=== PATIENT | female | born 1970 ===

== ENCOUNTER 2017-03-11 09:15 | Emergency (ER) | payer MEDICAID ==
[2017-03-11 09:34] VITALS: BP 134/75; TEMP 98.4; O2SAT 98
[2017-03-11] MEDS ORDERED: Fluorescein 1 mg Ophthalmic Strip ONE (10:06)
[2017-03-11] MEDS ORDERED: Tetracaine 0.5% Ophth (OR ONLY) ONE (10:06)
--- NOTE | 2017-03-11 10:24 | C.PDOC ---
History Of Present Illness A 49 year old female presents to the emergency room with complaints of left eye irritation for the past 4 days. Patient describes the irritation as a foreign body sensation. Patient notes some slight redness. Patient denies any itching, discharge, sore throat, vision changes, or any other complaints. Time Seen by Provider: 03/11/17 09:47 Chief Complaint (Nursing): Eye Problem History Per: Patient History/Exam Limitations: no limitations Onset/Duration Of Symptoms: Days (4) Current Symptoms Are (Timing): Still Present Injury To Eye?: No Severity: Mild Associated Symptoms: FB Sensation. denies: Pain, Decreased Vision, Swelling, Itching, Discharge From Eye Recent travel outside of the [place]: No Past Medical History Reviewed: Historical Data, Nursing Documentation, Vital Signs Vital Signs: Last Vital Signs Temp 98.4 F 03/11/17 09:33 Pulse 71 03/11/17 10:50 Resp 18 03/11/17 10:50 BP 134/75 03/11/17 09:33 Pulse Ox 98 03/11/17 10:50 Family History: States: No Known Family Hx - Social History Hx Alcohol Use: No Hx Substance Use: No Review Of Systems Constitutional: Negative for: Fever, Chills Eyes: Positive for: Redness, Other (Left eye irritation - foreign body sensation. Slight redness. No discharge.). Negative for: Pain, Vision Change, Conjunctivae Inflammation, Eyelid Inflammation ENT: Negative for: Throat Pain, Throat Swelling Neurological: Negative for: Headache, Dizziness Physical Exam - Physical Exam Appears: Well, Non-toxic, No Acute Distress Skin: Normal Color, Warm, Dry, No Rash Head: Atraumatic, Normacephalic Eye(s): bilateral: PERRL, EOMI, left: Other (Slight conjuntiva redness. No discharge.) Neurological/Psych: Oriented x3, Normal Speech ED Course And Treatment O2 Sat by Pulse Oximetry: 98 Progress Note: Fluorescein and tetracaine were instilled. No foreign bodies or abrasions noted. Medical Decision Making Medical Decision Making: Patient given rx eye drops and instructed to follow up with opthalmologist within 1-2 days. Disposition Counseled Patient/Family Regarding: Diagnosis, Need For Followup - Disposition Referrals: Jakob Luque MD [Staff Provider] - Disposition: HOME/ ROUTINE Disposition Time: 10:15 Condition: GOOD Prescriptions: Ketorolac Tromethamine [Acular 0.5%] 2 drop TOP TID #1 bottle Instructions: Eye Pain (ED) - Clinical Impression Clinical Impression: Irritation of left eye - Scribe Statement The provider has reviewed the documentation as recorded by the Scribe Glenn Lindquist All medical record entries made by the Scribe were at my direction and personally dictated by me. I have reviewed the chart and agree that the record accurately reflects my personal performance of the history, physical exam, medical decision making, and the department course for this patient. I have also personally directed, reviewed, and agree with the discharge instructions and disposition.
[2017-03-11 10:50] VITALS: PULSE 71; RESP 18
== END 2017-03-11 10:51 | disposition home or self-care (01) ==
LOC: EDBD 09:15 → C.ER 09:15
DX: H57.8 Other specified disorders of eye and adnexa (principal)

== ENCOUNTER 2017-04-29 09:10 | Emergency (ER) | payer MEDICAID ==
--- NOTE | 2017-04-29 11:57 | RAD ---
HISTORY: r/o infiltrate COMPARISON: No prior. TECHNIQUE: Chest PA and lateral FINDINGS: LUNGS: No active pulmonary disease. PLEURA: No significant pleural effusion identified. No pneumothorax apparent. CARDIOVASCULAR: Normal. OSSEOUS STRUCTURES: Degenerative changes in the spine. VISUALIZED UPPER ABDOMEN: Normal. OTHER FINDINGS: None. IMPRESSION: No active disease.
[2017-04-29 12:27] VITALS: BP 122/67; PULSE 88; RESP 15; TEMP 98.2; O2SAT 99
--- NOTE | 2017-04-29 12:49 | C.PDOC ---
Time Seen by Provider: 04/29/17 09:54 Chief Complaint (Nursing): ENT Problem History Per: Patient History/Exam Limitations: None Onset/Duration Of Symptoms: Days (2) Current Symptoms Are (Timing): Still Present Past Medical History Vital Signs: Last Vital Signs Temp 98.2 F 04/29/17 12:26 Pulse 88 04/29/17 12:26 Resp 15 04/29/17 12:26 BP 122/67 04/29/17 12:26 Pulse Ox 99 04/29/17 12:49 - Social History Hx Alcohol Use: No Hx Substance Use: No ED Course And Treatment O2 Sat by Pulse Oximetry: 99 Disposition - Disposition Referrals: [facility] [Outside] [facility] [Outside] Disposition: HOME/ ROUTINE Condition: GOOD Additional Instructions: Thank you for letting us take care of you today. Your provider was Dr. Pulido. You were treated for an acute cough. The emergency medical care you received today was directed at your acute symptoms. If you were prescribed any medication, please fill it and take as directed. It may take several days for your symptoms to resolve. Return to the Emergency Department if your symptoms worsen, do not improve, or if you have any other problems. Please contact your doctor or call one of the physicians/clinics you have been referred to that are listed on the Patient Visit Information form that is included in your discharge packet. Bring any paperwork you were given at discharge with you along with any medications you are taking to your follow up visit. Our treatment cannot replace ongoing medical care by a primary care provider (PCP) outside of the emergency department. Thank you for allowing the [facility] team to be part of your care today. Follow up with the clinic in 3-4 days for re-evaluation. Instructions: Acute Cough (ED) Print Language: FAROESE - Scribe Statement The provider has reviewed the documentation as recorded by the Scribe Erica Basilio Provider Attestation: All medical record entries made by the Ronni were at my direction and personally dictated by me. I have reviewed the chart and agree that the record accurately reflects my personal performance of the history, physical exam, medical decision making, and the department course for this patient. I have also personally directed, reviewed, and agree with the discharge instructions and disposition.
--- NOTE | 2017-04-29 12:54 | C.PDOC ---
History Of Present Illness 47 year old patient presents to the ED complaining of right ear pain and cough for the past 2 days. She notes she has a productive cough with yellow phlegm. Patient also complains of a subjective fever. She denies any sick contacts, nausea, vomiting, or change in hearing. Time Seen by Provider: 04/29/17 09:54 Chief Complaint (Nursing): ENT Problem History Per: Patient History/Exam Limitations: None Onset/Duration Of Symptoms: Days (2) Current Symptoms Are (Timing): Still Present Quality (Ear): Pain W/Touch Symptoms Have Been: Continuous Severity: Mild Pain Scale Rating Of: 3 Past Medical History Reviewed: Historical Data, Nursing Documentation, Vital Signs Vital Signs: Last Vital Signs Temp 98.2 F 04/29/17 12:26 Pulse 88 04/29/17 12:26 Resp 15 04/29/17 12:26 BP 122/67 04/29/17 12:26 Pulse Ox 99 04/29/17 12:57 Family History: States: Unknown Family Hx - Social History Hx Alcohol Use: No Hx Substance Use: No Review Of Systems Except As Marked, All Systems Reviewed And Found Negative. Constitutional: Positive for: Fever (subjective) ENT: Positive for: Ear Pain (right) Respiratory: Positive for: Cough Gastrointestinal: Negative for: Nausea, Vomiting Physical Exam - Physical Exam Appears: Non-toxic, No Acute Distress Skin: Warm, Dry Head: Atraumatic, Normacephalic Eye(s): bilateral: Normal Inspection, PERRL, EOMI Ear(s): Bilateral: Normal Nose: Normal Oral Mucosa: Moist Throat: Normal, No Erythema, No Exudate Neck: Normal ROM, Supple Chest: Symmetrical Cardiovascular: Rhythm Regular Respiratory: Normal Breath Sounds, No Accessory Muscle Use, No Rales, No Rhonchi , No Wheezing Gastrointestinal/Abdominal: Soft, No Tenderness Back: Normal Inspection, No CVA Tenderness Extremity: Bilateral: Atraumatic Neurological/Psych: Oriented x3, Normal Speech, Normal Cognition Gait: Steady ED Course And Treatment O2 Sat by Pulse Oximetry: 99 (room air) Pulse Ox Interpretation: Normal - Other Rad Chest x-ray X-Ray: Read By Radiologist (Mekhi Girard MD) Interpretation: HISTORY: r/o infiltrate. COMPARISON: No prior. TECHNIQUE: Chest PA and lateral. FINDINGS: LUNGS: No active pulmonary disease. PLEURA: No significant pleural effusion identified. No pneumothorax apparent. CARDIOVASCULAR: Normal. OSSEOUS STRUCTURES: Degenerative changes in the spine. VISUALIZED UPPER ABDOMEN: Normal. OTHER FINDINGS: None. IMPRESSION: No active disease. Progress Note: Plan: Chest x-ray Disposition - Disposition Referrals: [facility] [Outside] [facility] [Outside] Disposition: HOME/ ROUTINE Disposition Time: 12:00 Condition: GOOD Additional Instructions: Thank you for letting us take care of you today. Your provider was Dr. Pulido. You were treated for an acute cough. The emergency medical care you received today was directed at your acute symptoms. If you were prescribed any medication, please fill it and take as directed. It may take several days for your symptoms to resolve. Return to the Emergency Department if your symptoms worsen, do not improve, or if you have any other problems. Please contact your doctor or call one of the physicians/clinics you have been referred to that are listed on the Patient Visit Information form that is included in your discharge packet. Bring any paperwork you were given at discharge with you along with any medications you are taking to your follow up visit. Our treatment cannot replace ongoing medical care by a primary care provider (PCP) outside of the emergency department. Thank you for allowing the [facility] team to be part of your care today. Follow up with the clinic in 3-4 days for re-evaluation. Instructions: Acute Cough (ED) Print Language: WOLOF - Clinical Impression Clinical Impression: Cough - Scribe Statement The provider has reviewed the documentation as recorded by the Titusibloan Basilio Provider Attestation: All medical record entries made by the Titusibloan were at my direction and personally dictated by me. I have reviewed the chart and agree that the record accurately reflects my personal performance of the history, physical exam, medical decision making, and the department course for this patient. I have also personally directed, reviewed, and agree with the discharge instructions and disposition.
== END 2017-04-29 12:26 | disposition home or self-care (01) ==
LOC: C.ER 09:10
DX: R05 Cough (principal)

== ENCOUNTER 2017-10-29 15:31 | Emergency (ER) | payer MEDICAID ==
[2017-10-29 15:32] VITALS: BMI 32.3
[2017-10-29 16:03] VITALS: TEMP 98.2
--- NOTE | 2017-10-29 16:46 | C.PDOC ---
History Of Present Illness 47 year old female presents to the ED for evaluation of a productive cough which began 5 days ago. Patient denies fever, chills, and ear pain at this time. Time Seen by Provider: 10/29/17 16:10 Chief Complaint (Nursing): Cough, Cold, Congestion History Per: Patient History/Exam Limitations: no limitations Onset/Duration Of Symptoms: Days (5) Current Symptoms Are (Timing): Still Present Associated Symptoms: Cough. denies: Fever, Chills Ear Symptoms: Bilateral: None Additional History Per: Patient Past Medical History Reviewed: Historical Data, Nursing Documentation, Vital Signs Vital Signs: Last Vital Signs Temp 98.2 F 10/29/17 15:59 Pulse 70 10/29/17 17:12 Resp 16 10/29/17 17:12 BP 129/84 10/29/17 17:12 Pulse Ox 100 10/29/17 20:48 - Medical History PMH: No Chronic Diseases Surgical History: No Surg Hx Family History: States: Unknown Family Hx - Social History Hx Alcohol Use: No Hx Substance Use: No - Immunization History Hx Tetanus Toxoid Vaccination: No Hx Influenza Vaccination: No Hx Pneumococcal Vaccination: No Review Of Systems Constitutional: Negative for: Fever, Chills ENT: Negative for: Ear Pain Respiratory: Positive for: Cough, Sputum Physical Exam - Physical Exam Appears: Non-toxic, No Acute Distress Skin: Normal Color, Warm, Dry Head: Atraumatic, Normacephalic Eye(s): bilateral: Normal Inspection Ear(s): Bilateral: Normal Nose: Normal, No Discharge Oral Mucosa: Moist Throat: Normal, No Erythema, No Exudate Neck: Supple Chest: Symmetrical, No Deformity, No Tenderness Cardiovascular: Rhythm Regular, No Murmur Respiratory: Normal Breath Sounds, No Rales, No Rhonchi, No Wheezing Neurological/Psych: Oriented x3, Normal Speech, Normal Cognition ED Course And Treatment O2 Sat by Pulse Oximetry: 100 (on RA) Pulse Ox Interpretation: Normal Progress Note: CXR ordered and reviewed. Results are negative. Zithromax PO administered. On reassessment, patient is resting comfortably, showing no signs of distress, remains afebrile and is stable for discharge. Patient is advised to f/u with her PMD within 1-2 days for further evaluation. Disposition - Disposition Disposition: HOME/ ROUTINE Disposition Time: 16:44 Condition: STABLE Additional Instructions: Follow up with PMD/Clinic within 1-2 days. Return to Ed if feel worse. Prescriptions: Ibuprofen [Motrin Tab] 600 mg PO Q8 #30 tab Promethazine HCl/Codeine [Prometh-Codein 6.25-10 mg/5 ml] 5 ml PO .Q4-6H #150 ml Azithromycin [Zithromax] 250 mg PO DAILY #4 tab Instructions: Acute Bronchitis (ED) Forms: [employer] (Greenlandic), Work Excuse Print Language: BELARUSIAN - Clinical Impression Clinical Impression: Bronchitis - PA / [employer] / Resident Statement MD/DO has reviewed & agrees with the documentation as recorded. - Scribe Statement The provider has reviewed the documentation as recorded by the Scribe (Alyssia Basilio) All medical record entries made by the Scribe were at my direction and personally dictated by me. I have reviewed the chart and agree that the record accurately reflects my personal performance of the history, physical exam, medical decision making, and the department course for this patient. I have also personally directed, reviewed, and agree with the discharge instructions and disposition.
[2017-10-29 17:14] VITALS: BP 129/84; PULSE 70; RESP 16
--- NOTE | 2017-10-29 18:03 | RAD ---
HISTORY: cough COMPARISON: Chest x-ray performed 04/29/17 TECHNIQUE: Chest PA and lateral FINDINGS: LUNGS: No focal consolidation. Tiny scattered probable vessels on end versus calcified granulomas. Please note that chest x-ray has limited sensitivity for the detection of pulmonary masses. PLEURA: No significant pleural effusion identified. No definite pneumothorax . CARDIOVASCULAR: Heart size appears within normal limits. OSSEOUS STRUCTURES: Degenerative changes. VISUALIZED UPPER ABDOMEN: Unremarkable. OTHER FINDINGS: None. IMPRESSION: No acute findings identified. Additional incidental findings as above.
[2017-10-29 20:49] VITALS: O2SAT 100
== END 2017-10-29 17:12 | disposition home or self-care (01) ==
LOC: C.ER 15:31
DX: J40 Bronchitis, not specified as acute or chronic (principal)

== ENCOUNTER 2017-11-01 09:12 | Emergency (ER) | payer MEDICAID ==
[2017-11-01 09:12] VITALS: BMI 32.3
[2017-11-01 09:20] VITALS: BP 137/83; PULSE 90; TEMP 98.1; O2SAT 99
--- NOTE | 2017-11-01 10:00 | C.PDOC ---
History Of Present Illness Kimmie Pierre is a 47 year old female, with no past medical history, who presents to the emergency department complaining of cough and gum pain onset for x1 week. Patient reports developing a fever and cough x1 week ago, and states she began developing an abscess on left side of her gums around the same time. She was seen in the ER on 10/29/17 and prescribed motrin, promethazine and zithromax with no relief of cough. She states promethazine made her vomit. Cough is worst at night when sleeping. She denies any current fevers. No further complains. PMD: None provided. Time Seen by Provider: 11/01/17 09:32 Chief Complaint (Nursing): ENT Problem History Per: Patient History/Exam Limitations: no limitations, language barrier (translated by dawson ) Onset/Duration Of Symptoms: Days (x1 week) Current Symptoms Are (Timing): Still Present Severity: Mild Pain Scale Rating Of: 0 Past Medical History Reviewed: Historical Data, Nursing Documentation, Vital Signs Vital Signs: Last Vital Signs Temp 98.1 F 11/01/17 09:18 Pulse 90 11/01/17 09:18 Resp 17 11/01/17 10:18 BP 137/83 11/01/17 09:18 Pulse Ox 99 11/01/17 10:20 - Medical History PMH: No Chronic Diseases Surgical History: No Surg Hx Family History: States: Unknown Family Hx - Social History Hx Tobacco Use: No Hx Alcohol Use: No Hx Substance Use: No - Immunization History Hx Tetanus Toxoid Vaccination: No Hx Influenza Vaccination: No Hx Pneumococcal Vaccination: No Review Of Systems Except As Marked, All Systems Reviewed And Found Negative. Constitutional: Negative for: Fever ENT: Positive for: Mouth Pain (gum pain) Respiratory: Positive for: Cough Physical Exam - Physical Exam Appears: Well, Non-toxic, No Acute Distress Skin: Normal Color, Warm, Dry Head: Atraumatic, Normacephalic Eye(s): bilateral: Normal Inspection, EOMI Ear(s): Bilateral: Normal Nose: Normal Gingiva: Erythema (proximal to tooth #19th-20th ), Swelling, No Abscess ( definitive) Throat: Normal Neck: Normal ROM, Supple Cardiovascular: Rhythm Regular Respiratory: Normal Breath Sounds, No Accessory Muscle Use Extremity: Normal ROM, No Deformity, No Swelling Neurological/Psych: Oriented x3 (alert), Normal Speech ED Course And Treatment O2 Sat by Pulse Oximetry: 99 (RA) Pulse Ox Interpretation: Normal Medical Decision Making Medical Decision Making: Initial Impression: dental infection Initial Plan: --Zithromax 500 mg PO --reevaluation 10:00 Upon provider reevaluation patient is feeling better, is medically stable, and requires no further treatment in the ED at this time. Patient will be discharged home with Rx for amoxicillin. Counseling was provided and all questions were answered regarding diagnosis and need for follow up with dentist. There is agreement to discharge plan. Return if symptoms persist or worsen. Disposition Counseled Patient/Family Regarding: Diagnosis, Need For Followup, Rx Given - Disposition Referrals: [facility] [Outside] Disposition: HOME/ ROUTINE Disposition Time: 10:00 Condition: STABLE Additional Instructions: follow up with dental associates at [facility] [phone] call to make an appointment take medications as prescribed return to hospital if symptoms worsens or progress take over the counter cough medication for cough follow up with your doctor in 2 days Prescriptions: Amoxicillin 875 mg PO BID #20 tablet Instructions: Gingivostomatitis (ED) Forms: [employer] (Puerto Rican) Print Language: FILIPINO - Clinical Impression Clinical Impression: Cough, Gum symptoms - Scribe Statement Alexandr Ramsey Provider Attestation: All medical record entries made by the Scribe were at my direction and personally dictated by me. I have reviewed the chart and agree that the record accurately reflects my personal performance of the history, physical exam, medical decision making, and the department course for this patient. I have also personally directed, reviewed, and agree with the discharge instructions and disposition.
--- NOTE | 2017-11-01 10:03 | C.PDOC ---
History Of Present Illness Kimmie Pierre is a 47 year old female, with no past medical history, who presents to the emergency department complaining of cough and gum pain onset for x1 week. Patient reports developing a fever and cough x1 week ago, for which she was seen in the ER and prescribed Time Seen by Provider: 11/01/17 09:32 Chief Complaint (Nursing): ENT Problem Past Medical History Vital Signs: Last Vital Signs Temp 98.1 F 11/01/17 09:18 Pulse 90 11/01/17 09:18 Resp 18 11/01/17 09:18 BP 137/83 11/01/17 09:18 Pulse Ox 99 11/01/17 10:00 Family History: States: Unknown Family Hx - Social History Hx Alcohol Use: No Hx Substance Use: No - Immunization History Hx Tetanus Toxoid Vaccination: No Hx Influenza Vaccination: No Hx Pneumococcal Vaccination: No ED Course And Treatment O2 Sat by Pulse Oximetry: 99 Disposition - Disposition Referrals: [facility] [Outside] Forms: [facility] (Hebrew)
[2017-11-01 10:19] VITALS: RESP 17
== END 2017-11-01 10:18 | disposition home or self-care (01) ==
LOC: C.ER 09:12
DX: R05 Cough (principal); K06.9 Disorder of gingiva and edentulous alveolar ridge, unspecified

== ENCOUNTER 2017-12-09 09:17 | Emergency (ER) | payer MEDICAID ==
[2017-12-09 09:25] VITALS: BMI 25.7
[2017-12-09 09:28] VITALS: BP 125/85; PULSE 68; RESP 18; TEMP 98.4; O2SAT 100
[2017-12-09] MEDS ORDERED: Lidocaine 5% Patch TD STA (09:44)
[2017-12-09] MEDS ORDERED: Lidocaine 5% Patch TD ONE (09:59)
--- NOTE | 2017-12-09 10:07 | C.PDOC ---
History Of Present Illness 47 y/o female with history of high cholesterol presents to ED with complaints of left sided chest pain constant for 4 days, associated reproducible pain and pain with movement . Patient states her pain is a 10/10 but is not noted to be in any distress and denies taking any medication for pain. Patient is speaking in full sentences and denies trauma to area, fever, chills, nausea, vomiting or any other complaints at this time. Time Seen by Provider: 12/09/17 09:37 Chief Complaint (Nursing): Chest Pain History Per: Patient History/Exam Limitations: no limitations Onset/Duration Of Symptoms: Days Current Symptoms Are (Timing): Still Present Past Medical History Reviewed: Historical Data, Nursing Documentation, Vital Signs Vital Signs: Last Vital Signs Temp 98.4 F 12/09/17 09:25 Pulse 68 12/09/17 09:25 Resp 18 12/09/17 09:25 BP 125/85 12/09/17 09:25 Pulse Ox 100 12/09/17 10:54 - Medical History PMH: Hypercholesterolemia Surgical History: No Surg Hx Family History: States: No Known Family Hx - Social History Hx Tobacco Use: No Hx Alcohol Use: No Hx Substance Use: No - Immunization History Hx Tetanus Toxoid Vaccination: No Hx Influenza Vaccination: No Hx Pneumococcal Vaccination: No Review Of Systems Constitutional: Negative for: Fever, Chills Cardiovascular: Positive for: Chest Pain Respiratory: Positive for: SOB with Excertion Gastrointestinal: Negative for: Nausea, Vomiting Skin: Negative for: Rash Physical Exam - Physical Exam Appears: Non-toxic, No Acute Distress Skin: Warm, Dry, No Rash Head: Atraumatic, Normacephalic Eye(s): bilateral: Normal Inspection Oral Mucosa: Moist Neck: Normal ROM, Supple Cardiovascular: Rhythm Regular Respiratory: Normal Breath Sounds, No Rales, No Rhonchi, No Wheezing Gastrointestinal/Abdominal: Soft, No Tenderness, No Guarding, No Rebound Extremity: Normal ROM, Capillary Refill (<2 seconds) Neurological/Psych: Oriented x3 ED Course And Treatment ECG: Interpreted By Me, Viewed By Me ECG Rhythm: Sinus Rhythm Rate From EC (BPM) O2 Sat by Pulse Oximetry: 100 (RA) Pulse Ox Interpretation: Normal Medical Decision Making Medical Decision Making: Plan: Tylenol, Motrin administered, CXR and ECG ordered EKG wnl, CXR read by me WNL Patient feeling better, will; d/c with f/u Disposition Counseled Patient/Family Regarding: Studies Performed, Diagnosis, Need For Followup, Rx Given - Disposition Referrals: at [facility] [Outside] Disposition: HOME/ ROUTINE Disposition Time: 10:52 Condition: STABLE Prescriptions: Ibuprofen [Motrin] 1 tab PO TID PRN #30 tab PRN Reason: Pain Instructions: Musculoskeletal Pain (ED) Forms: Gen Discharge Inst Central African, [facility] (Central African) - POA Present On Arrival: None - Clinical Impression Clinical Impression: Chest wall pain - Scribe Statement The provider has reviewed the documentation as recorded by the Scribloan Villa All medical record entries made by the Titusibloan were at my direction and personally dictated by me. I have reviewed the chart and agree that the record accurately reflects my personal performance of the history, physical exam, medical decision making, and the department course for this patient. I have also personally directed, reviewed, and agree with the discharge instructions and disposition.
--- NOTE | 2017-12-09 10:45 | RAD ---
HISTORY: chest wall pain COMPARISON: Chest x-ray performed 10/29/17 TECHNIQUE: Chest PA and lateral FINDINGS: Examination limited by habitus and hypoinflation. LUNGS: No focal consolidation. Scattered probable calcified granulomas. Please note that chest x-ray has limited sensitivity for the detection of pulmonary masses. PLEURA: No significant pleural effusion identified. No definite pneumothorax . CARDIOVASCULAR: Heart size appears within normal limits. OSSEOUS STRUCTURES: Degenerative changes. VISUALIZED UPPER ABDOMEN: Unremarkable. OTHER FINDINGS: None. IMPRESSION: Hypoinflation.
== END 2017-12-09 11:11 | disposition home or self-care (01) ==
LOC: C.ER 09:17
DX: R07.89 Other chest pain (principal)

== ENCOUNTER 2018-06-21 19:00 | Emergency (ER) | payer MEDICAID ==
[2018-06-21 19:01] VITALS: BMI 32.5
[2018-06-21 19:25] VITALS: TEMP 98.5; O2SAT 98
[2018-06-21] MEDS ORDERED: Sodium Chloride 0.9% 1,000 ML IV ONE ×2 (19:34)
[2018-06-21] MEDS ORDERED: Sucralfate 1 gm/10 ml Oral Susp UD PO STA (19:35)
--- NOTE | 2018-06-21 19:42 | C.PDOC ---
History Of Present Illness 48 year old female presents to the ED complaining of upper abdominal pain ongoing for the past 3 weeks. She states pain radiates to the back. Patient denies any nausea, vomiting, diarrhea, hematuria, or dysuria. Chief Complaint (Nursing): Abdominal Pain History Per: Patient History/Exam Limitations: no limitations Onset/Duration Of Symptoms: Other (3 weeks ) Current Symptoms Are (Timing): Still Present Radiation Of Pain To:: Back Associated Symptoms: Back Pain. denies: Nausea, Vomiting, Diarrhea, Urinary Symptoms Past Medical History Reviewed: Historical Data, Nursing Documentation, Vital Signs Vital Signs: Last Vital Signs Temp 98.5 F 06/21/18 19:23 Pulse 84 06/21/18 19:23 Resp 14 06/21/18 19:23 BP 120/70 06/21/18 19:23 Pulse Ox 98 06/21/18 19:44 - Medical History PMH: Hypercholesterolemia Surgical History: Family History: States: No Known Family Hx - Social History Hx Tobacco Use: No Hx Alcohol Use: No Hx Substance Use: No - Immunization History Hx Tetanus Toxoid Vaccination: No Hx Influenza Vaccination: No Hx Pneumococcal Vaccination: No Review Of Systems Gastrointestinal: Positive for: Abdominal Pain. Negative for: Nausea, Vomiting , Diarrhea Genitourinary: Negative for: Dysuria, Hematuria Musculoskeletal: Positive for: Back Pain Physical Exam - Physical Exam Appears: Non-toxic, No Acute Distress Skin: Warm, Dry Head: Atraumatic, Normacephalic Eye(s): bilateral: Normal Inspection Neck: Supple Chest: Symmetrical Cardiovascular: Rhythm Regular Respiratory: Normal Breath Sounds, No Rales, No Rhonchi, No Wheezing Gastrointestinal/Abdominal: Tenderness (Epigastric tenderness), No Guarding, No Rebound Extremity: Normal ROM Neurological/Psych: Oriented x3, Normal Speech Gait: Steady ED Course And Treatment - Laboratory Results Result Diagrams: 06/21/18 19:30 06/21/18 19:30 O2 Sat by Pulse Oximetry: 98 (RA) Pulse Ox Interpretation: Normal Medical Decision Making Medical Decision Making: Orders: CT Abd/Pel Lab work Blood work Bentyl 10mg IM Famotidine IVPB Carafate IV Fluids UA Disposition Counseled Patient/Family Regarding: Diagnosis - Disposition Referrals: [facility] [Outside] Disposition: HOME/ ROUTINE Disposition Time: 21:22 Condition: STABLE Prescriptions: Famotidine [Pepcid] 20 mg PO BID #30 tab Sucralfate [Carafate] 1 gm PO BID #20 tab Instructions: Gastritis, Ulcer and Gastritis Diet Forms: [facility] (Wallisian), Gen Discharge Inst Bulgarian Print Language: ITALIAN - POA Present On Arrival: None - Clinical Impression Clinical Impression: Abdominal pain, Peptic gastritis - Scribe Statement The provider has reviewed the documentation as recorded by the Ronni Pretty All medical record entries made by the Ronni were at my direction and personally dictated by me. I have reviewed the chart and agree that the record accurately reflects my personal performance of the history, physical exam, medical decision making, and the department course for this patient. I have also personally directed, reviewed, and agree with the discharge instructions and disposition.
[2018-06-21 19:48] LABS: BASO % 0.5 % (0.0-2.0); EOS # 0.2 K/uL (0.0-0.7); EOS % 1.9 % (0.0-4.0); HEMOGLOBIN 13.5 g/dL (11.0-16.0); LYMPH # 2.2 K/uL (1.0-4.3); MEAN CELL VOLUME 86.5 fL (81.0-99.0); MEAN CORPUSCULAR HEMOGLOBIN 29.7 pg (27.0-31.0); MEAN CORPUSCULAR HGB CONC 34.3 g/dL (33.0-37.0); MEAN PLATELET VOLUME 8.2 fL (7.2-11.7); MONO # 0.6 K/uL (0.0-0.8); MONO % 7.9 % (0.0-10.0); NEUT # 4.8 K/uL (1.8-7.0); NEUT % 61.7 % (50.0-75.0); NRBC % 0.1 % (0.0-2.0); RBC 4.56 Mil/uL (3.80-5.20); RED CELL DISTRIBUTION WIDTH 13.4 % (11.5-14.5); WHITE BLOOD COUNT 7.9 K/uL (4.8-10.8)
[2018-06-21 19:50] LABS: SQUAMOUS EPITHIAL 1 /hpf (0-5); URINE BILIRUBIN NEGATIVE (NEGATIVE); URINE BLOOD NEGATIVE (NEGATIVE); URINE CLARITY Clear (Clear); URINE COLOR Yellow (YELLOW); URINE GLUCOSE (UA) NORMAL (Normal); URINE LEUKOCYTE ESTERASE NEG Leu/uL (Negative); URINE PROTEIN NEGATIVE (NEGATIVE); URINE UROBILINOGEN NORMAL mg/dL (0.2-1.0)
[2018-06-21 20:00] LABS: ALB/GLOB RATIO 1.2 (1.0-2.1); ALBUMIN 4.1 g/dL (3.5-5.0); ALT/SGPT 27 U/L (9-52); AST/SGOT 23 U/L (14-36); BLOOD UREA NITROGEN 15 mg/dL (7-17); CALCIUM 9.1 mg/dl (8.6-10.4); GFR AFRICAN-AMERICAN > 60; GFR NON-AFRICAN AMERICAN > 60; LIPASE 87 U/L (23-300)
[2018-06-21] MEDS ORDERED: Sucralfate 1 gm/10 ml Oral Susp UD ONE (20:11)
[2018-06-21] MEDS ORDERED: Iodixanol 320 MG/ML 100 ML BOTTLE IV ONE (20:41)
[2018-06-21 21:42] VITALS: BP 122/82; PULSE 76; RESP 18
--- NOTE | 2018-06-22 08:57 | CT ---
Date of service: 06/21/2018 PROCEDURE: CT Abdomen and Pelvis with intravenous contrast HISTORY: Abdominal pain COMPARISON: None. TECHNIQUE: Multiple contiguous axial images were performed through the abdomen and pelvis with the use of intravenous contrast. Subsequently, sagittal and coronal reformatted images were. Radiation dose: Total exam DLP = 472 mGy-cm. This CT exam was performed using one or more of the following dose reduction techniques: Automated exposure control, adjustment of the mA and/or kV according to patient size, and/or use of iterative reconstruction technique. FINDINGS: LOWER THORAX: Unremarkable. LIVER: Unremarkable. No gross lesion or ductal dilatation. GALLBLADDER AND BILE DUCTS: Unremarkable. PANCREAS: Unremarkable. No gross lesion or ductal dilatation. SPLEEN: Unremarkable. ADRENALS: Unremarkable. No mass. KIDNEYS AND URETERS: Unremarkable. No hydronephrosis. No solid mass. VASCULATURE: Unremarkable. No aortic aneurysm. BOWEL: Mild to moderate fecal retention in the colon. Few diverticula without diverticulitis. APPENDIX: No evidence of appendicitis. PERITONEUM: Unremarkable. No free fluid. No free air. LYMPH NODES: Few shotty retroperitoneal nodes. BLADDER: Unremarkable. REPRODUCTIVE: Unremarkable. BONES: No acute fracture. OTHER FINDINGS: None. IMPRESSION: No acute findings. Moderate fecal retention. Diverticulosis. These findings were preliminarily reported at 9:12 p.m. on 06/21/[address] Hebert Mark from [facility].
== END 2018-06-21 21:45 | disposition home or self-care (01) ==
LOC: C.ER 19:00
DX: K29.70 Gastritis, unspecified, without bleeding (principal); R10.10 Upper abdominal pain, unspecified; E78.00 Pure hypercholesterolemia, unspecified
CPT/HCPCS: 74177; 80053; 81001; 83690; 85025; 94770; 96365; 96372; 99285; J0500; J7030; Q9967

== ENCOUNTER 2018-08-18 09:40 | Emergency (ER) | payer MEDICAID ==
[2018-08-18 09:40] VITALS: BMI 32.5
[2018-08-18 09:58] VITALS: TEMP 98.7
--- NOTE | 2018-08-18 12:20 | C.PDOC ---
History Of Present Illness 48 y/o female presents to ED with c/o cough for 4 days associated with right upper back pain and right ear pain. Time Seen by Provider: 08/18/18 11:01 Chief Complaint (Nursing): Cough, Cold, Congestion Past Medical History Vital Signs: Last Vital Signs Temp 98.7 F 08/18/18 09:55 Pulse 80 08/18/18 09:55 Resp 18 08/18/18 09:55 BP 135/77 08/18/18 09:55 Pulse Ox 99 08/18/18 09:55 - Medical History PMH: Hypercholesterolemia Surgical History: - Social History Hx Tobacco Use: No Hx Alcohol Use: No Hx Substance Use: No - Immunization History Hx Tetanus Toxoid Vaccination: No Hx Influenza Vaccination: No Hx Pneumococcal Vaccination: No ED Course And Treatment O2 Sat by Pulse Oximetry: 99 Disposition - Disposition
--- NOTE | 2018-08-18 12:21 | C.PDOC ---
History Of Present Illness 48 y/o female presents to ED with c/o cough and right ear pain for 4 days. Patient denies ear discharge, decreased hearing, headache, nausea, vomiting, sob, chest pain, or any other complaints at this time. Time Seen by Provider: 08/18/18 11:01 Chief Complaint (Nursing): Cough, Cold, Congestion History Per: Patient, Business Banking Manager (Ronni Reid) History/Exam Limitations: no limitations Onset/Duration Of Symptoms: Days Current Symptoms Are (Timing): Still Present Associated Symptoms: Cough Past Medical History Reviewed: Historical Data, Nursing Documentation, Vital Signs Vital Signs: Last Vital Signs Temp 98.7 F 08/18/18 09:55 Pulse 80 08/18/18 09:55 Resp 18 08/18/18 09:55 BP 135/77 08/18/18 09:55 Pulse Ox 99 08/18/18 09:55 - Medical History PMH: Hypercholesterolemia Surgical History: Family History: States: No Known Family Hx - Social History Hx Tobacco Use: No Hx Alcohol Use: No Hx Substance Use: No - Immunization History Hx Tetanus Toxoid Vaccination: No Hx Influenza Vaccination: No Hx Pneumococcal Vaccination: No Review Of Systems Except As Marked, All Systems Reviewed And Found Negative. ENT: Positive for: Ear Pain. Negative for: Ear Discharge Respiratory: Positive for: Cough Genitourinary: Negative for: Dysuria, Hematuria Physical Exam - Physical Exam Appears: Non-toxic, No Acute Distress Skin: Warm, Dry, No Rash Head: Atraumatic, Normacephalic Eye(s): bilateral: Normal Inspection, EOMI Ear(s): Left: Normal, Right: TM Obscured By Wax Nose: Normal Oral Mucosa: Moist Throat: Normal, No Erythema, No Exudate Neck: Normal, Normal ROM, Supple Chest: Symmetrical Cardiovascular: Rhythm Regular Respiratory: Normal Breath Sounds, No Rales, No Rhonchi, No Wheezing Gastrointestinal/Abdominal: Soft, No Tenderness, No Guarding, No Rebound Extremity: Normal ROM Neurological/Psych: Oriented x3, Normal Speech, Normal Cognition ED Course And Treatment O2 Sat by Pulse Oximetry: 99 (RA) Pulse Ox Interpretation: Normal - Radiology CXR: Interpreted by Me, Viewed By Me CXR Interpretation: Yes: No Acute Disease Progress Note: SOme cerumen removed with currete, though unable to see TM. On reassessment, patient is resting comfortably, and is in no acute distress. Patient was instructed to follow up with physician/clinic in 1-2 days for further evaluation. Disposition - Disposition Disposition: HOME/ ROUTINE Disposition Time: 12:51 Condition: STABLE Additional Instructions: Vaya a reed mdico o la clnica en 2-5 barbosa sin falta, para mas evaluacin. [place] los medicamentos mana indicado. Volver a la micheal de emergencia en cualquier momento si los sntomas persisten o empeoran. Prescriptions: Azithromycin [Zithromax] 250 mg PO DAILY #6 tab Benzonatate [Tessalon Perle] 100 mg PO TID PRN #15 capsule PRN Reason: Cough Carbamide Peroxide [Debrox Ear Drops] 3 drop AD BID #1 bottle Forms: [employer] (Lao) Print Language: SPA - Clinical Impression Clinical Impression: Bronchitis, Cerumen impaction - PA / BLOOD DONOR RECRUITER / Resident Statement MD/DO has reviewed & agrees with the documentation as recorded. - Scribe Statement The provider has reviewed the documentation as recorded by the Titusibloan Villa All medical record entries made by the Titusibloan were at my direction and personally dictated by me. I have reviewed the chart and agree that the record accurately reflects my personal performance of the history, physical exam, medical decision making, and the department course for this patient. I have also personally directed, reviewed, and agree with the discharge instructions and disposition.
--- NOTE | 2018-08-18 12:30 | RAD ---
HISTORY: pain COMPARISON: Chest x-ray performed 12/09/17 TECHNIQUE: Chest PA and lateral FINDINGS: LUNGS: Hypoinflation. No focal consolidation. Please note that chest x-ray has limited sensitivity for the detection of pulmonary masses. PLEURA: No significant pleural effusion identified. No definite pneumothorax . CARDIOVASCULAR: Heart size appears within normal limits. OSSEOUS STRUCTURES: Degenerative changes. VISUALIZED UPPER ABDOMEN: Mild elevation of the right hemidiaphragm. OTHER FINDINGS: None. IMPRESSION: Hypoinflation.
[2018-08-18 13:04] VITALS: BP 128/81; PULSE 81; RESP 16; O2SAT 98
== END 2018-08-18 13:03 | disposition home or self-care (01) ==
LOC: C.ER 09:40
DX: J40 Bronchitis, not specified as acute or chronic (principal); H61.21 Impacted cerumen, right ear